=== PATIENT | female | born 1955 | race Caucasian/White ===

== ENCOUNTER → 2021-07-11 | Day surgery (SDC) | payer OTHER ==
[~2021-07-11] VITALS: Ht 152.4 cm; Wt 48.5 kg
[~2021-07-11] MED LIST: 8 HOUR650 MG PO; ALLERGY RELIEF10 M1 PO; AMLODIPINE BESY10 MG PO; CALCIUM WITH V1 EAC2 PO; HCTZ25 MG PO; MACROBID100 MG PO; POTASSIUM CHLO20 ME1 PO; WOMEN'S DAILY1 EAC1 PO
== END | disposition home or self-care (01) ==
LOC: FAS 08:16
DX: K63.5 Polyp of colon (principal); K57.30 Diverticulosis of large intestine without perforation or abscess without bleeding; K64.8 Other hemorrhoids; K64.4 Residual hemorrhoidal skin tags; I10 Essential (primary) hypertension; E78.5 Hyperlipidemia, unspecified; F17.210 Nicotine dependence, cigarettes, uncomplicated; Z79.899 Other long term (current) drug therapy
CPT/HCPCS: J2704; J7120

== ENCOUNTER 2021-07-25 18:02 | Emergency (ER) | payer OTHER ==
[2021-07-25 23:39] LABS: BASOPHIL 0.3 % (0-2); EOSINOPHIL 0.1 % (0-7); HCT 44.2 % (37.0-47.0); HGB 14.9 g/dl (12.5-16.0); LYMPHOCYTE 8.2 % (15-48); MCH 32.5 pg (25.0-31.0); MCHC 33.7 g/dL (32.0-36.0); MCV 96.5 fL (78.0-100.0); MONOCYTE 6.3 % (0-12); MPV 8.3 fL (6.0-9.5); NEUTROPHIL 84.8 % (41-80); NRBC 0; PLT 449 K/uL (150-400); RBC 4.58 M/uL (4.20-5.40); RDW 12.1 % (11.5-14.0); WBC 16.7 K/uL (4.0-10.5)
[2021-07-25 23:47] LABS: PROTHROMBIN TIME 12.6 SECONDS (11.8-13.4); PTT 26.5 SECONDS (24.4-34.7)
[2021-07-25 23:56] LABS: ALBUMIN 3.8 g/dL (3.4-5.0); BILIRUBIN - TOTAL 0.5 mg/dL (0.2-1.0); BUN/CREAT RATIO (CALC) 26.4 RATIO; CREATININE 0.53 mg/dL (0.51-0.95); GLOBULIN (CALCULATION) 2.8 g/dL; POTASSIUM 3.7 mmol/L (3.5-5.1); TOTAL PROTEIN 6.6 g/dL (6.4-8.2)
== END 2021-07-26 00:17 | disposition other institution (70) ==
LOC: FER 18:02
PROVIDERS: Internal Medicine
DX: S12.100A Unspecified displaced fracture of second cervical vertebra, initial encounter for closed fracture (principal); S00.03XA Contusion of scalp, initial encounter; I10 Essential (primary) hypertension; F17.210 Nicotine dependence, cigarettes, uncomplicated; V43.52XA Car driver injured in collision with other type car in traffic accident, initial encounter
CPT/HCPCS: 36415; 70450; 70486; 71250; 72125; 72128; 72131; 80053; 85025; 85610; 85730; J1170; J2405